=== PATIENT | female | born 1965 | race Caucasian/White ===

== ENCOUNTER 2024-01-02 14:44 | Day surgery (SDC) | payer BC ==
[2024-01-02] MEDS ORDERED: LIDOCAINE HCL 1% AMPUL 5 ML IJ ONE (14:45)
[2024-01-02] MEDS ORDERED: Sodium Chloride 0.9(Preservative Free) 10 ML IJ ONE (14:45)
[2024-01-02] MEDS ORDERED: Decadron 4 MG INJ IV ONE (14:45)
--- NOTE | 2024-01-02 18:56 | XRAY ---
Indication: Right L4-S1 transforaminal PERICO. Intraoperative fluoroscopy provided for 28 seconds. 8 digital spot image submitted for interpretation demonstrates posterior needle tips projecting over the expected right L4 and L5 nerve roots. Small amount of contrast injected for needle tip placement. Correlate with intraoperative findings/report.
--- NOTE | 2024-01-03 08:52 | XRAY ---
28 seconds of fluoroscopy was used in surgery for a right L4-S1 transforaminal PERICO.
== END 2024-01-02 16:40 | disposition home or self-care (01) ==
LOC: SDC-PAIN 14:44
PROVIDERS: ATTEND Psychiatry & Neurology Pain Medicine
DX: M54.16 Radiculopathy, lumbar region (principal)
CPT/HCPCS: 64483; 64484; 72100; 77003; J1100; Q9966

== ENCOUNTER 2024-04-23 14:10 | Day surgery (SDC) | payer BC ==
[2024-04-23] MEDS ORDERED: Sodium Chloride 0.9(Preservative Free) 10 ML IJ ONE (14:11)
[2024-04-23] MEDS ORDERED: LIDOCAINE HCL 1% AMPUL 5 ML IJ ONE (14:11)
[2024-04-23] MEDS ORDERED: methylPREDNISolone acetate IM ONE (14:11)
--- NOTE | 2024-04-23 16:32 | XRAY ---
Indication: Caudal PERICO. Intraoperative fluoroscopy provided for 1 minute 4 seconds. 3 digital spot image submitted for interpretation demonstrates caudal needle tip projecting mid sacrum. Small amount of contrast injected for needle tip placement. Correlate with intraoperative findings/report.
--- NOTE | 2024-04-23 17:08 | XRAY ---
One minute and 4 seconds of fluoroscopy was used in surgery for a caudal PERICO.
== END 2024-04-23 16:18 ==
LOC: SDC-PAIN 14:10
PROVIDERS: ATTEND Psychiatry & Neurology Pain Medicine
DX: M54.16 Radiculopathy, lumbar region (principal)
CPT/HCPCS: 62323; 72220; 77003; J1010; Q9966